=== PATIENT | female | born 1950 | race Caucasian/White ===

== ENCOUNTER 2016-03-05 19:02 | Inpatient (IN) | payer OTHER, MEDICARE ==
[~2016-03-05] VITALS: Ht 160 cm; Wt 83.3 kg
[~2016-03-05 19:02] MED LIST: ATEN-100 PO; ESTR0.5T PO; FLUO20 PO; TRAM50 PO
[2016-03-05 19:04] VITALS: BP 155/90; PULSE 113; RESP 16; TEMP 98.8; O2SAT 94
[2016-03-05] MEDS ORDERED: FLUO-1 PO (19:07)
[2016-03-05] MEDS ORDERED: LISI-515 PO (19:07)
[2016-03-05] MEDS ORDERED: KETOROLAC TROMETHAMINE 30 MG/ML (IVP) VIAL IV PUSH ONE (19:30)
[2016-03-05] MEDS ORDERED: DIAZEPAM 5 MG TAB PO ONE (19:30)
--- NOTE | 2016-03-05 20:11 | RADRPT ---
EXAM DATE/TIME: 03/05/2016 19:45 [facility] COMPARISON: No previous studies available for comparison. INDICATIONS : Fall, right hip pain. MEDICAL HISTORY : None. SURGICAL HISTORY : None. ENCOUNTER: Initial ACUITY: 1 day PAIN SCORE: 10/10 LOCATION: Right hip FINDINGS: AP and crosstable lateral views of the right hip were obtained and demonstrate a mildly comminuted in tertrochanteric fracture. There is a reduction in the normal hip angulation to approximately 90. The femoral head and acetabulum are intact. Pubic rami are intact as well. There is overlying soft tissu e swelling. CONCLUSION: Right intertrochanteric fracture. Jarrod Garza MD on March 05, 2016 at 20:08 Board Certified Radiologist. This report was verified electronically.
--- NOTE | 2016-03-05 20:13 | RADRPT ---
EXAM DATE/TIME: 03/05/2016 19:50 [facility] COMPARISON: No previous studies available for comparison. INDICATIONS : Right knee pain post fall. MEDICAL HISTORY : None. SURGICAL HISTORY : None. ENCOUNTER: Initial ACUITY: 1 day PAIN SCORE: 10/10 LOCATION: Bilateral chest FINDINGS: A limited two-view examination of the right knee was obtained in nonstandard for acute trauma series. This demonstrates mild osteopenia with no acute fracture or malalignment. The patella is intact. The re is a small 5 x 4 mm density in the anterior soft tissues adjacent to the proximal tibia. CONCLUSION: 1. No acute fracture or malalignment on this limited 2 view study. 2. Small soft tissue density of unclear significance. This could represent calcification or possible foreign body. Jarrod Garza MD on March 05, 2016 at 20:10 Board Certified Radiologist. This report was verified electronically.
--- NOTE | 2016-03-05 20:45 | RADRPT ---
EXAM DATE/TIME: 03/05/2016 19:45 [facility] COMPARISON: No previous studies available for comparison. INDICATIONS : Pre-op evaluation. MEDICAL HISTORY : None. SURGICAL HISTORY : None. ENCOUNTER: Initial ACUITY: 1 day PAIN SCORE: 10/10 LOCATION: Bilateral chest FINDINGS: A single AP supine view of the chest was obtained. The patient is mildly rotated. There is mild hazy opacity projected over the right lung which likely is artifactual. There are no confluent infiltrates or effusions. The heart size is at the upper limits of normal. Bony thorax is intact in appearance CONCLUSION: Rotated study hazy opacity projected over the right lung which likely is artifactual. Jarrod Garza MD on March 05, 2016 at 20:43 Board Certified Radiologist. This report was verified electronically.
[2016-03-05 21:06] LABS: AUTOMATED NEUTROPHIL # 10.2 TH/MM3 (1.8-7.7); BASOPHIL # 0.1 TH/MM3 (0-0.2); BASOPHIL % 0.5 % (0.0-2.0); EOSINOPHIL # 0.1 TH/MM3 (0-0.4); EOSINOPHIL % 0.5 % (0.0-4.0); HEMATOCRIT 44.7 % (35.0-46.0); HEMO FLAGS DIFF FINAL; LYMPH % 9.1 % (9.0-44.0); LYMPHOCYTE # 1.1 TH/MM3 (1.0-4.8); MEAN CELL VOLUME 88.2 FL (80.0-100.0); MEAN CORPUSCULAR HGB CONC 35.2 % (32.0-36.0); MONO % 3.2 % (0.0-8.0); NEUT % 86.7 % (16.0-70.0); PLATELET COUNT 250 TH/MM3 (150-450); RED BLOOD COUNT 5.07 MIL/MM3 (4.00-5.30); RED CELL DISTRIBUTION WIDTH 12.6 % (11.6-17.2); WHITE BLOOD COUNT 11.8 TH/MM3 (4.0-11.0)
[2016-03-05 21:09] LABS: APTT (PATIENT) 28.4 SEC (24.3-30.1); INTERNATIONAL NORMALIZED RATIO 0.9 RATIO; PROTHROMBIN TIME - PATIENT 10.2 SEC (9.8-11.6)
--- NOTE | 2016-03-05 21:19 | PD ---
HPI Chief Complaint: Fall Time Seen by Provider: 19:14 Travel History International Travel<30 days: No Contact w/Intl Traveler<30days: No Traveled to known affect area: No History of Present Illness HPI 65yo F with PMH of depression, [place] syndrome and HTN present to the ED with c/ o right hip pain s/p slip and fall outside her home today. Denies any head trauma, dizziness, chest pain, sob, n/v, abdominal pain, weakness or numbness. Pt was unable to get up from fall. PFSH Past Medical History Depression: Yes Hypertension: Yes Past Surgical History Other Surgery: Yes (RIGHT HAND PLASTIC SX) Social History Alcohol Use: No Tobacco Use: Yes (5 CIGARETTES DAILY) Substance Use: No Allergies-Medications (Allergen,Severity, Reaction): Coded Allergies: No Known Allergies (Unverified , 04/07/12) Reported Meds & Prescriptions Reported Meds & Active Scripts Active Reported Prozac (Fluoxetine HCl) 10 Mg Cap 50 Mg PO DAILY Lisinopril 20 Mg Tab Unknown Dose PO DAILY Review of Systems Except as stated in HPI: all other systems reviewed are Neg Physical Exam Narrative GENERAL: 65yo F in moderate distress. SKIN: Warm and dry. HEAD: Atraumatic. Normocephalic. EYES: Pupils equal and round. No scleral icterus. No injection or drainage. ENT: No nasal bleeding or discharge. Mucous membranes pink and moist. NECK: Trachea midline. No JVD. CARDIOVASCULAR: Regular rate and rhythm. No murmur appreciated. RESPIRATORY: No accessory muscle use. Clear to auscultation. Breath sounds equal bilaterally. GASTROINTESTINAL: Abdomen soft, non-tender, nondistended. Hepatic and splenic margins not palpable. 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 RLE: + TTP right proximal femur. No open wound. DP 2+. Sensation intact. NEUROLOGICAL: Awake and alert. No obvious cranial nerve deficits. Motor grossly within normal limits. Normal speech. PSYCHIATRIC: Appropriate mood and affect; insight and judgment normal. Data Data Last Documented VS Vital Signs Date Time Temp Pulse Resp B/P Pulse Ox O2 Delivery O2 Flow Rate FiO2 03/05/16 21:29 55 18 150/69 96 Nasal Cannula 2 03/05/16 19:04 98.8 Orders Diazepam (Valium) (03/05/16 19:30) Ketorolac Inj (Toradol Inj) (03/05/16 19:30) Hip, Uni(Ap&Lat) W Ap Pelvis (03/05/16 ) Knee, Ltd (1 Or 2vws) (03/05/16 ) Complete Blood Count With Diff (03/05/16 20:27) Basic Metabolic Panel (Bmp) (03/05/16 20:27) Prothrombin Time / Inr (Pt) (03/05/16 20:27) Act Partial Throm Time (Ptt) (03/05/16 20:27) Type And Screen (03/05/16 20:27) Chest, Single Ap (03/05/16 ) Admit Order (Ed Use Only) (03/05/16 22:17) Consult Orthopedic (03/05/16 ) Labs Laboratory Tests Test 03/05/16 20:45 White Blood Count 11.8 TH/MM3 Red Blood Count 5.07 MIL/MM3 Hemoglobin 15.7 GM/DL Hematocrit 44.7 % Mean Corpuscular Volume 88.2 FL Mean Corpuscular Hemoglobin 31.0 PG Mean Corpuscular Hemoglobin 35.2 % Concent Red Cell Distribution Width 12.6 % Platelet Count 250 TH/MM3 Mean Platelet Volume 8.8 FL Neutrophils (%) (Auto) 86.7 % Lymphocytes (%) (Auto) 9.1 % Monocytes (%) (Auto) 3.2 % Eosinophils (%) (Auto) 0.5 % Basophils (%) (Auto) 0.5 % Neutrophils # (Auto) 10.2 TH/MM3 Lymphocytes # (Auto) 1.1 TH/MM3 Monocytes # (Auto) 0.4 TH/MM3 Eosinophils # (Auto) 0.1 TH/MM3 Basophils # (Auto) 0.1 TH/MM3 CBC Comment DIFF FINAL Differential Comment Prothrombin Time 10.2 SEC Prothromb Time International 0.9 RATIO Ratio Activated Partial 28.4 SEC Thromboplast Time Sodium Level 138 MEQ/L Potassium Level 3.4 MEQ/L Chloride Level 99 MEQ/L Carbon Dioxide Level 31.7 MEQ/L Anion Gap 7 MEQ/L Blood Urea Nitrogen 20 MG/DL Creatinine 0.81 MG/DL Estimat Glomerular Filtration 71 ML/MIN Rate Random Glucose 100 MG/DL Calcium Level 8.6 MG/DL Blood Type O POSITIVE Antibody Screen NEGATIVE Blood Bank Comment MDM Medical Decision Making Medical Screen Exam Complete: Yes Emergency Medical Condition: Yes Differential Diagnosis Fracture vs. contusion Narrative Course 65yo F with right leg pain s/p mechanical fall. Xray right hip showed right intertrochanteric fracture. Pt given toradol and valium for pain. Labs, reviewed, mild leukocytosis. H/H stable. Pt has no other injuries. Xray of right knee negative for fracture. Orthopedic consulted, discussed with Dr. Veronica, orthopedic consult placed and recommended admit to medicine. Diagnosis Primary Impression: Fracture, intertrochanteric, right femur Qualified Code: S72.141A - Fracture, intertrochanteric, right femur, closed, initial encounter Admitting Information Admitting Physician Requests: Admit Scripts Rivaroxaban (Xarelto)10 Mg Tab10 Mg PO DAILY #14 TAB Ref 0 Prov:Roberto Wong 03/06/16 Hydrocodone-Acetaminophen ([place])7.5-325 mg Tab1 Tab PO Q4H PRN (PAIN) #60 TAB Ref 0 Prov:Roberto Wong 03/06/16 Britt Leo DO Mar 05, 2016 21:19
[2016-03-05 21:23] LABS: BICARBONATE 31.7 MEQ/L (21.0-32.0); POTASSIUM 3.4 MEQ/L (3.5-5.1)
[2016-03-05 21:29] VITALS: BP 150/69; PULSE 55; RESP 18; O2SAT 96
[2016-03-05] MEDS ORDERED: NALOXONE HCL 0.4 MG/ML AMP IV PRN (22:30)
[2016-03-05] MEDS ORDERED: SODIUM CHLORIDE 0.9% FLUSH 5 ML FLUSH FLUSH PRN (22:30)
[2016-03-05 23:47] VITALS: BP 102/55; PULSE 57; RESP 18; O2SAT 94
[2016-03-06] MEDS: MORPHINE SULFATE 4 MG/ML INJ IV PUSH PRN ×2 (01:00→04:46)
[2016-03-06 02:42] VITALS: BP 91/55; PULSE 65; RESP 18; TEMP 98.4; O2SAT 97
[2016-03-06 04:46] VITALS: BP 126/61; PULSE 63; RESP 18; TEMP 98.4; O2SAT 100
[2016-03-06 05:06] LABS: AUTOMATED NEUTROPHIL # 5.8 TH/MM3 (1.8-7.7); BASOPHIL % 0.5 % (0.0-2.0); EOSINOPHIL # 0.1 TH/MM3 (0-0.4); EOSINOPHIL % 0.8 % (0.0-4.0); HEMATOCRIT 40.3 % (35.0-46.0); HEMO FLAGS DIFF FINAL; LYMPH % 25.9 % (9.0-44.0); LYMPHOCYTE # 2.3 TH/MM3 (1.0-4.8); MEAN CELL VOLUME 88.8 FL (80.0-100.0); MEAN CORPUSCULAR HEMOGLOBIN 30.8 PG (27.0-34.0); MEAN CORPUSCULAR HGB CONC 34.7 % (32.0-36.0); MONO % 7.3 % (0.0-8.0); NEUT % 65.5 % (16.0-70.0); PLATELET COUNT 218 TH/MM3 (150-450); RED BLOOD COUNT 4.53 MIL/MM3 (4.00-5.30); RED CELL DISTRIBUTION WIDTH 12.8 % (11.6-17.2); WHITE BLOOD COUNT 8.9 TH/MM3 (4.0-11.0)
[2016-03-06 05:19] LABS: BICARBONATE 33.3 MEQ/L (21.0-32.0); POTASSIUM 3.5 MEQ/L (3.5-5.1)
[2016-03-06 06:35] VITALS: BP 101/58; PULSE 55; RESP 18; TEMP 98.7; O2SAT 96
--- NOTE | 2016-03-06 06:52 | PD.ORT.PN ---
Subjective Subjective Remarks s/p fall at home right hip pain. no other complaints. Objective Vitals Vital Signs Date Time Temp Pulse Resp B/P Pulse Ox O2 Delivery O2 Flow Rate FiO2 03/06/16 06:37 18 03/06/16 06:35 98.7 55 18 101/58 96 Nasal Cannula 2 03/06/16 04:46 98.4 63 18 126/61 100 Room Air 03/06/16 02:42 98.4 65 18 91/55 97 Room Air 03/06/16 00:59 18 03/05/16 23:47 57 18 102/55 94 Nasal Cannula 2 03/05/16 21:29 55 18 150/69 96 Nasal Cannula 2 03/05/16 19:04 98.8 113 16 155/90 94 Result Diagram: 03/06/16 0437 03/06/16 0447 Other Results Laboratory Tests Test 03/05/16 20:45 Prothrombin Time 10.2 SEC (9.8-11.6) Prothromb Time International 0.9 RATIO Ratio Objective Remarks RLE: Foot externally rotated. NVI. pain with motion of hip LLE: no pain with motion. NVI BUE: no pain with motion. NVI Assessment & Plan Assessment and Plan 1) Right Intertroch Hip Fx -consents -surgery this AM Roberto Wong Mar 06, 2016 06:52
[2016-03-06] MEDS ORDERED: XARE10TA PO (06:54)
[2016-03-06] MEDS ORDERED: WALKER/ADULT/FO1 MIS (06:54)
[2016-03-06] MEDS ORDERED: HYDR-3288 PO (06:54)
[2016-03-06] MEDS ORDERED: ceFAZolin INJ 1,000 MG VIAL ONE (07:50)
[2016-03-06] MEDS ORDERED: VANCOMYCIN HCL 1000 MG VIAL ONE (07:50)
[2016-03-06] MEDS ORDERED: BUPIVACAINE/EPINEPHRINE 0.25% PF 10 ML VIAL ONE (07:50)
[2016-03-06] MEDS ORDERED: GENTAMICIN SULFATE 80 MG/2 ML VIAL ONE (07:51)
[2016-03-06] MEDS ORDERED: SODIUM CHLOR 0.9% 250 ML INJ 250 ML ONE (07:51)
--- NOTE | 2016-03-06 08:29 | MB ---
cc: TRISTIAN LEDESMA DATE OF CONSULTATION: 03/06/2016 REASON FOR CONSULTATION Right hip intertrochanteric fracture. HISTORY OF PRESENT ILLNESS Hanna is a 65-year-old female who lives at home with her . She was outside in her yard. She lost her balance and fell. She denies any dizziness, syncope or loss of consciousness. She describes a mechanical fall. She landed on her right hip. She had immediate right hip pain. She was unable to stand or ambulate. Pain is worse with movement and is improved with rest. She presented to the emergency room where x-rays revealed a right hip intertrochanteric fracture. She is currently awake and alert in the emergency department. Her only complaint is her right hip. PAST MEDICAL HISTORY ILLNESSES 1. Depression. 2. Hypertension. SURGERIES Right hand surgery by a plastic surgeon. ALLERGIES None. MEDICATIONS 1. Prozac. 2. Lisinopril. SOCIAL HISTORY The patient denies alcohol or drug use. She smokes a few cigarettes a day. REVIEW OF SYSTEMS Patient denies headache, visual changes, neck pain, chest pain, shortness of breath, abdominal pain, nausea, vomiting or recent weight loss. She complains of right hip pain. Pain is worse with movement. FAMILY HISTORY Noncontributory. PHYSICAL EXAMINATION GENERAL: The patient is a well-developed, well-nourished 65-year-old female who is awake and alert. She is alert and oriented x3. She is in a hospital bed. VITAL SIGNS: Temperature 98.7, pulse 55, respirations 18, blood pressure 101/58. O2 sat is 96% on two liters nasal cannula. HEAD: The patient is normocephalic. Pupils are equal. NECK: Soft, nontender. Trachea is midline. ABDOMEN: Soft, nontender, nondistended. EXTREMITIES: Examination of the right and left upper extremity reveals no obvious pain or deformity with shoulder, elbow or wrist motion. She has good capillary refill in her fingers. Skin is intact in both hands. Radial pulses are palpable bilaterally. Examination of left leg reveals no significant pain with hip, knee or ankle motion. Skin is intact. Dorsalis pedis pulse is palpable. Sensation is intact. Examination of right leg reveals pain with any hip motion. She has no tenderness around the knee, tibia or ankle. Skin is intact. Dorsalis pedis pulse is palpable. X-RAYS X-rays of the right hip were reviewed. The patient has a displaced right hip intertrochanteric fracture. IMPRESSION 1. Hypertension. 2. Possible osteoporosis. 3. Right hip intertrochanteric fracture. PLAN The treatment options were discussed with the patient. At this point I would recommend right hip reduction and intramedullary nail fixation. The risks of surgery include bleeding, infection, injuries to arteries, nerves and blood vessels, nonunion, malunion, painful hardware, as well as medical complications including blood clot, stroke, heart attack and . All questions were answered. I will plan on surgery today. A mid-level provider in my office, nurse practitioner or PA, may see this patient on a follow-up basis and continue to implement the objective of this plan including: Starting or adjusting medications, injections of muscle, tendon, bursa or joints, cast application, orthotic or brace application, physical therapy, further radiographic studies including x-ray, MRI, CT, ultrasounds or bone scan, vascular studies, neurologic studies, or other specialist consultations, and proceeding with surgical management as appropriate. MD TRINO Naidu/GERI /8:01 AM /8:17 AM
[2016-03-06] MEDS ORDERED: ceFAZolin INJ 1,000 MG VIAL IV ONE (08:31)
[2016-03-06] MEDS ORDERED: VANCOMYCIN HCL 1000 MG VIAL OTHER ONE (08:31)
[2016-03-06] MEDS ORDERED: GENTAMICIN SULFATE 80 MG/2 ML VIAL XX ONE (08:36)
[2016-03-06] MEDS ORDERED: BUPIVACAINE/EPINEPHRINE 0.25% PF 30 ML VIAL INFIL ONE (08:36)
[2016-03-06] MEDS ORDERED: SODIUM CHLORIDE 0.9% FLUSH 5 ML FLUSH FLUSH SCH (09:00)
[2016-03-06] MEDS ORDERED: MORPHINE SULFATE 4 MG/ML INJ IV PUSH PRN (09:15)
[2016-03-06] MEDS ORDERED: ERGOCALCIFEROL (VIT D2) 50,000 UNIT CAP PO ONE (09:15)
[2016-03-06] MEDS ORDERED: ACETAMINOPHEN/HYDROcodone 325 MG/7.5 MG TAB PO PRN (09:15)
[2016-03-06] MEDS ORDERED: diphenhydrAMINE HCL 25 MG CAP PO PRN (09:15)
[2016-03-06] MEDS ORDERED: ONDANSETRON HCL 4 MG/2 ML VIAL IVP PRN (09:15)
[2016-03-06] MEDS ORDERED: SODIUM CHLORIDE 0.9% FLUSH 5 ML FLUSH IVF PRN (09:15)
--- NOTE | 2016-03-06 09:15 | PD.OP ---
cc: Donny Bonilla MD Operative Report Date of Surgery: Mar 06, 2016 Preoperative Diagnosis: Right hip intertrochanteric fracture Postoperative Diagnosis: Procedure: Right hip reduction and intramedullary nail fixation Anesthesia: Gen. Surgeon: Donny Bonilla Hand Cloth Cutter(s): YG Bates PA-C The surgical procedure was assisted by my physician title i assistant. My P.A. presence was necessary throughout this case for the manipulation and positioning of the surgical extremity. My P.A. was assisting me throughout the duration of this procedure. The skill set of a physician title i assistant was medically necessary to complete this procedure. During the surgical case the surgical training specialist was working at the back table and the physician title i assistant was directly assisting me. Operation and Findings: Implants used: [10]mm x [360]mm 125 Synthes TFNA troch nail Plan of activity: 50% weightbearing Patient was seen and evaluated preoperatively. The patient has significant hip pain from proximal femur fracture. The risk and benefits of surgery were discussed in depth with the patient to include bleeding, infection, nonunion, malunion, need for hip replacement, painful hardware, as well as medical competitions including blood clots, stroke, heart attack, and . Informed consent was obtained. Operative site was marked. Patient was brought to the operating room and placed on fracture table. IV sedation was administered by anesthesiologist. Timeout procedure was performed. Hip and leg were prepped with alcohol followed by DuraPrep and draped in the usual sterile fashion. IV antibiotics were given prior to incision. Procedure began with reduction of fracture. Traction was applied. The leg was manipulated to achieve reduction. Excellent reduction was achieved. Fluoroscopy was used to confirm reduction. A three inch incision was made proximal to the trochanter. Subcutaneous tissue was dissected bluntly. Guidepin was placed at the tip of the trochanter and advanced into the femoral canal. Fluoroscopy confirmed appropriate guidepin placement. A opening reamer was placed over the guidepin. A long ball tipped guide pin was now placed down the femoral canal into the center of the distal femur. The nail length was now measured. Fluoroscopy confirmed appropriate guidepin placement. Flexible reamers were now passed over the guidepin to ream the intramedullary canal. The Synthes TFNA nail was attached to the insertion handle. Nail was now placed over the guidepin into the femoral canal. Fluoroscopy confirmed appropriate nail placement. A second incision was made over the lateral thigh. Cannulas were placed through the insertion handle down to the femur. Guidepin was now placed through the femoral nail into the center of the femoral head. Fluoroscopy confirmed appropriate guidepin placement. Screw length was measured. Cannulated drill was placed over the guidepin. Appropriate length lag screw was now placed. Traction was released and compression was applied. The set screw was now tightened in dynamic mode. Next, using perfect [place] technique two distal interlocking screws were placed. Screw holes were predrilled and screw lengths were measured. Final fluoroscopy revealed well aligned fracture with well-placed hardware. Incision was closed with 3-0 Vicryl and kassandra. Sterile dressings were applied. Patient was awakened and transferred to recovery room. Donny Bonilla MD Mar 06, 2016 09:15
[2016-03-06] MEDS ORDERED: DO NOT ADM ANY ANTICOAGULANT DRUGS XX PRN (09:30)
[2016-03-06] MEDS ORDERED: MIDAZOLAM HCL 2 MG/2 ML VIAL ONE (09:50)
[2016-03-06] MEDS ORDERED: *morphine SULFATE 8 MG/ML PERIprocedure ONLY ONE ×3 (10:06→10:23)
--- NOTE | 2016-03-06 10:43 | HHI.HP ---
[facility] Primary Care Physician Glen Beltran MD Admission Diagnosis Right intertrochanteric fracture Diagnoses: Chief Complaint: fall Travel History International Travel<30 Days: No Contact w/Intl Traveler <30 Da: No Traveled to Known Affected Are: No History of Present Illness 65-year-old female with past medical history of hypertension, depression who came to the emergency room for evaluation after mechanical fall at home. X-ray reveals intertrochanteric fracture, orthopedic doctor was consulted and Dr. Bonilla, just the patient to the OR for surgery. The patient was seen after the surgery. Her blood pressure was noted low immediately in tobacco systolic blood pressure is 70. She received 1 L normal saline plan to continue her second liter. Blood pressure is improving. Patient is complaining at this time is feeling a little bit dizzy. Denies chest pain, shortness of breath, nausea, vomiting, diarrhea or constipation. Review of Systems Constitutional: COMPLAINS OF: Dizziness (after surgery ), DENIES: Fever, Chills, Change in appetite Endocrine: DENIES: Heat/cold intolerance Eyes: DENIES: Blurred vision, Eye pain Ears, nose, mouth, throat: DENIES: Tinnitus, Hearing loss, Vertigo, Nasal discharge, Oral lesions, Throat pain, Hoarseness, Ear Pain, Running Nose, Epistaxis, Sinus Pain, Toothache, Odynophagia Respiratory: DENIES: Apneas, Cough, Snoring, Wheezing, Hemoptysis, Sputum production, Shortness of breath Cardiovascular: DENIES: Chest pain, Palpitations, Syncope, Dyspnea on Exertion , PND, Lower Extremity Edema, Orthopnea, Claudication Gastrointestinal: DENIES: Constipation, Diarrhea, Nausea, Vomiting Genitourinary: DENIES: Urinary frequency, Urinary incontinence, Urgency Musculoskeletal: COMPLAINS OF: Joint pain Neurologic: DENIES: Abnormal gait, Headache, Localized weakness, Paresthesias, Seizures, Speech Problems, Tremor, Poor Balance Psychiatric: COMPLAINS OF: Anxiety, Depression Past Family Social History Past Medical History Hypertension, depression Past Surgical History Denies having any surgical history in the past Reported Medications Reported Meds & Active Scripts Active Xarelto (Rivaroxaban) 10 Mg Tab 10 Mg PO DAILY [place] (Hydrocodone-Acetaminophen) 7.5-325 mg Tab 1 Tab PO Q4H PRN Reported Prozac (Fluoxetine HCl) 10 Mg Cap 50 Mg PO DAILY Lisinopril 20 Mg Tab Unknown Dose PO DAILY Allergies: Coded Allergies: No Known Allergies (Unverified , 04/07/12) Family History Father had heart problems, cad with cabg Social History Denies alcohol use, tobacco use or illicit drug use. Physical Exam Vital Signs Vital Signs Date Time Temp Pulse Resp B/P Pulse Ox O2 Delivery O2 Flow Rate FiO2 03/06/16 10:00 80 14 110/57 97 Nasal Cannula 2 03/06/16 09:45 94 14 91/55 98 Nasal Cannula 2 03/06/16 09:42 97.7 93 14 110/58 95 Nasal Cannula 2 03/06/16 06:37 18 03/06/16 06:35 98.7 55 18 101/58 96 Nasal Cannula 2 03/06/16 04:46 98.4 63 18 126/61 100 Room Air 03/06/16 02:42 98.4 65 18 91/55 97 Room Air 03/06/16 00:59 18 03/05/16 23:47 57 18 102/55 94 Nasal Cannula 2 03/05/16 21:29 55 18 150/69 96 Nasal Cannula 2 03/05/16 19:04 98.8 113 16 155/90 94 Physical Exam GENERAL: This is a 65-year-old female, well-nourished, well-developed patient, in no apparent distress. SKIN: No rashes, ecchymoses or lesions. Cool and dry. HEAD: Atraumatic. Normocephalic. No temporal or scalp tenderness. EYES: Pupils equal round and reactive. Extraocular motions intact. No scleral icterus. No injection or drainage. ENT: Nose without bleeding, purulent drainage or septal hematoma. Throat without erythema, tonsillar hypertrophy or exudate. Uvula midline. Airway patent. NECK: Trachea midline. No JVD or lymphadenopathy. Supple, nontender, no meningeal signs. CARDIOVASCULAR: Regular rate and rhythm without murmurs, gallops, or rubs. RESPIRATORY: Clear to auscultation. Breath sounds equal bilaterally. No wheezes , rales, or rhonchi. GASTROINTESTINAL: Abdomen soft, non-tender, nondistended. No hepato-splenomegaly , or palpable masses. No guarding. MUSCULOSKELETAL: Extremities without clubbing, cyanosis, or edema. No joint tenderness, effusion, or edema noted. No calf tenderness. Negative Homans sign bilaterally. NEUROLOGICAL: Awake and alert. Cranial nerves II through XII intact. Motor and sensory grossly within normal limits. Five out of 5 muscle strength in all muscle groups. Normal speech. Laboratory Laboratory Tests Test 03/05/16 03/06/16 03/06/16 20:45 04:37 04:47 White Blood Count 11.8 8.9 Red Blood Count 5.07 4.53 Hemoglobin 15.7 14.0 Hematocrit 44.7 40.3 Mean Corpuscular Volume 88.2 88.8 Mean Corpuscular Hemoglobin 31.0 30.8 Mean Corpuscular Hemoglobin 35.2 34.7 Concent Red Cell Distribution Width 12.6 12.8 Platelet Count 250 218 Mean Platelet Volume 8.8 8.6 Neutrophils (%) (Auto) 86.7 65.5 Lymphocytes (%) (Auto) 9.1 25.9 Monocytes (%) (Auto) 3.2 7.3 Eosinophils (%) (Auto) 0.5 0.8 Basophils (%) (Auto) 0.5 0.5 Neutrophils # (Auto) 10.2 5.8 Lymphocytes # (Auto) 1.1 2.3 Monocytes # (Auto) 0.4 0.6 Eosinophils # (Auto) 0.1 0.1 Basophils # (Auto) 0.1 0.0 CBC Comment DIFF FINAL DIFF FINAL Differential Comment Prothrombin Time 10.2 Prothromb Time International 0.9 Ratio Activated Partial 28.4 Thromboplast Time Sodium Level 138 139 Potassium Level 3.4 3.5 Chloride Level 99 100 Carbon Dioxide Level 31.7 33.3 Anion Gap 7 6 Blood Urea Nitrogen 20 21 Creatinine 0.81 0.86 Estimat Glomerular Filtration 71 66 Rate Random Glucose 100 98 Calcium Level 8.6 8.4 Blood Type O POSITIVE Antibody Screen NEGATIVE Blood Bank Comment 25-Hydroxy Vitamin D Total 7.3 Result Diagram: 03/06/16 0437 03/06/16 0447 Imaging Last Impressions Knee X-Ray 03/05/16 0000 Signed Impressions: Service Date/Time: Saturday, March 05, 2016 19:50 - CONCLUSION: 1. No acute fracture or malalignment on this limited 2 view study. 2. Small soft tissue density of unclear significance. This could represent calcification or possible foreign body. Jarrod Garza MD Hip and Pelvis X-Ray 03/05/16 0000 Signed Impressions: Service Date/Time: Saturday, March 05, 2016 19:45 - CONCLUSION: Right intertrochanteric fracture. Jarrod Garza MD Chest X-Ray 03/05/16 0000 Signed Impressions: Service Date/Time: Saturday, March 05, 2016 19:45 - CONCLUSION: Rotated study hazy opacity projected over the right lung which likely is artifactual. Jarrod Garza MD Assessment and Plan Assessment and Plan 65-year-old female with past medical history hypertension, depression came to the emergency room for further evaluation after mechanical fall at home. Mechanical fall at home Rights in intertrochanteric fracture. Status post relief by Dr. Bonilla . Pain per pain scale. Continue management per orthopedic doctor Hypertension. Noted hypotensive immediately after surgery. Received 2 L normal saline. Continue with bolus of normal saline until blood pressure is better controlled. Discussed with the nursing in pacu. Hold blood pressure medications at this time. Monitor vital signs closely. Depression. Stable at this time. Continue home medications. DVT prophylaxis SCD/teds, chemical prophylaxis per surgeon. Code Status Full code Discussed Condition With Patient, nurse Physician Certification 2 Midnight Certification Type: Admission for Inpatient Services Order for Inpatient Services The services are ordered in accordance with Medicare regulations or non- Medicare payer requirements, as applicable. In the case of services not specified as inpatient-only, they are appropriately provided as inpatient services in accordance with the 2-midnight benchmark. Estimated LOS (days): 3 days is the estimated time the patient will need to remain in the hospital, assuming treatment plan goals are met and no additional complications. Post-Hospital Plan: Home Marlin Martin MD Mar 06, 2016 10:43
[2016-03-06] MEDS ORDERED: *RESP: ALBUTEROL 2.5 MG/3 ML NEB (PRN) PERIprocedural Use ONLY NEB ONE (10:57)
[2016-03-06] MEDS ORDERED: LACTATED RINGER'S 1000 ML INJ 1,000 ML IV ONE ×3 (11:45→15:59)
[2016-03-06] MEDS ORDERED: ePHEDrine/NS 50 MG/5 ML SYR IV ONE (12:20)
[2016-03-06] MEDS ORDERED: ePHEDrine/NS 50 MG/5 ML SYR ONE (12:20)
[2016-03-06 12:45] LABS: REVIEW FLAG FINAL
--- NOTE | 2016-03-06 13:55 | EKG ---
Date Performed: 03/06/2016 Time Performed: 08:08:37 PTAGE: 65 years EKG: Sinus rhythm NORMAL ECG NO PREVIOUS TRACING DOCTOR: Danny Toledo Interpretating Date/Time 03/06/2016 13:53:51
[2016-03-06] MEDS ORDERED: ONDANSETRON HCL 4 MG/2 ML VIAL IV PUSH ONE (15:03)
[2016-03-06] MEDS ORDERED: PROPOFOL 200 MG/20 ML AMP IV ONE (15:03)
[2016-03-06] MEDS ORDERED: PHENYLEPH/NS 1000 MCG/10 ML SYR IV ONE (15:03)
[2016-03-06] MEDS: LACTATED RINGER'S 1000 ML INJ 1,000 ML IV SCH (15:10)
--- NOTE | 2016-03-06 15:30 | RADRPT ---
EXAM DATE/TIME: 03/06/2016 09:09 [place] COMPARISON: HIP RIGHT (AP&LAT 2/3VWS) W AP PELVIS, March 05, 2016, 19:45. INDICATIONS : ORIF right femur IM nail. MEDICAL HISTORY : None. SURGICAL HISTORY : None. ENCOUNTER: Subsequent ACUITY: 2 days PAIN SCORE: Non-responsive. LOCATION: Right femur. FINDINGS: 6 spot fluoroscopic images obtained in the operating room during a procedure demonstrate an antegrade intramedullary monique with 2 distal interlocking screws and a proximal femoral head/neck screw. There i s improved anatomic alignment associated with the intertrochanteric femur fracture. CONCLUSION: Improved anatomic alignment following right femur ORIF. Joaquín Willard MD on March 06, 2016 at 15:27 Board Certified Radiologist. This report was verified electronically.
[2016-03-06] MEDS ORDERED: ACETAMINOPHEN 1000 MG/100 ML VIAL IV ONE ×2 (15:57→16:15)
[2016-03-06] MEDS: ERGOCALCIFEROL (VIT D2) 50,000 UNIT CAP PO SCH (20:00)
[2016-03-06] MEDS: SODIUM CHLORIDE 0.9% FLUSH 5 ML FLUSH IVF SCH (21:00)
[2016-03-07] VITALS (7 sets, daily range): BP systolic 89–135; BP diastolic 60–70; PULSE 87–97; RESP 16–18; TEMP 97.8–99.6; O2SAT 95–100
[2016-03-07] MEDS: LACTATED RINGER'S 1000 ML INJ 1,000 ML IV SCH (05:31)
[2016-03-07 06:30] LABS: HEMATOCRIT 28.9 % (35.0-46.0); REVIEW FLAG FINAL
[2016-03-07] MEDS: ACETAMINOPHEN/HYDROcodone 325 MG/7.5 MG TAB PO PRN ×3 (07:11→15:41)
--- NOTE | 2016-03-07 07:46 | HHI.PR ---
Subjective Remarks Feels much better. Pain is fairly controlled by meds. No n/v/d/c. No fevers. BP is better controlled. Objective Vitals Vital Signs Date Time Temp Pulse Resp B/P Pulse Ox O2 Delivery O2 Flow Rate FiO2 03/07/16 07:05 100.1 99 14 122/68 98 Nasal Cannula 2 03/07/16 06:00 96 18 138/71 98 Nasal Cannula 2 03/07/16 05:07 98.8 93 16 107/53 97 Nasal Cannula 2 03/07/16 04:00 90 16 105/54 96 Nasal Cannula 2 03/07/16 03:00 99.8 94 16 107/51 95 Nasal Cannula 2 03/07/16 02:10 85 16 96/45 97 Nasal Cannula 2 03/07/16 01:12 100.2 87 18 108/52 96 Nasal Cannula 2 03/07/16 00:06 80 16 100/51 96 Nasal Cannula 2 03/06/16 23:00 80 14 90/45 96 Nasal Cannula 2 03/06/16 22:00 75 14 100/50 96 Nasal Cannula 2 03/06/16 21:00 75 16 106/67 98 Nasal Cannula 2 03/06/16 20:00 71 14 81/47 96 Nasal Cannula 2 03/06/16 19:00 98.6 73 14 94/49 97 Nasal Cannula 2 03/06/16 18:30 72 14 99/56 97 Nasal Cannula 2 03/06/16 18:10 74 14 81/45 97 Nasal Cannula 2 03/06/16 18:00 69 14 83/50 99 Nasal Cannula 2 03/06/16 17:30 77 14 85/45 97 Nasal Cannula 2 03/06/16 17:00 68 14 92/51 97 Nasal Cannula 2 03/06/16 16:45 71 14 84/49 95 Nasal Cannula 2 03/06/16 16:30 71 14 106/58 97 Nasal Cannula 2 03/06/16 16:00 97.8 80 14 77/48 95 Nasal Cannula 2 03/06/16 15:30 84 14 93/52 96 Nasal Cannula 2 03/06/16 15:15 73 14 88/51 95 Nasal Cannula 2 03/06/16 15:00 77 14 92/54 96 Nasal Cannula 2 03/06/16 14:45 79 14 99/52 95 Nasal Cannula 2 03/06/16 14:30 75 14 89/50 95 Nasal Cannula 2 03/06/16 14:15 77 14 93/48 95 Nasal Cannula 2 03/06/16 14:00 75 14 87/45 96 Nasal Cannula 2 03/06/16 13:45 73 14 90/48 97 Nasal Cannula 2 03/06/16 13:30 81 14 83/45 98 Nasal Cannula 2 03/06/16 13:15 82 14 82/44 97 Nasal Cannula 2 03/06/16 13:00 75 14 77/44 97 Nasal Cannula 2 03/06/16 12:45 75 14 78/48 96 Nasal Cannula 2 03/06/16 12:30 80 14 95/53 96 Nasal Cannula 2 03/06/16 12:15 75 14 75/47 95 Nasal Cannula 2 03/06/16 12:00 70 14 78/48 95 Nasal Cannula 2 03/06/16 11:45 88 14 89/50 98 Nasal Cannula 2 03/06/16 11:30 96 14 89/49 97 Nasal Cannula 2 03/06/16 11:15 73 14 82/52 96 Nasal Cannula 2 03/06/16 11:00 73 14 89/49 97 Nasal Cannula 2 03/06/16 10:45 84 14 79/47 95 Nasal Cannula 2 03/06/16 10:30 90 14 95/52 94 Nasal Cannula 2 03/06/16 10:15 89 14 122/63 97 Nasal Cannula 2 03/06/16 10:00 80 14 110/57 97 Nasal Cannula 2 03/06/16 09:45 94 14 91/55 98 Nasal Cannula 2 03/06/16 09:42 97.7 93 14 110/58 95 Nasal Cannula 2 I/O 03/06/16 03/06/16 03/06/16 03/07/16 03/07/16 03/07/16 07:00 15:00 23:00 07:00 15:00 23:00 Intake Total 4300 ml 1750 ml 1049 ml Output Total 780 ml 415 ml 600 ml Balance 3520 ml 1335 ml 449 ml Intake Oral 150 ml IV Total 3800 ml 1600 ml 1049 ml Other 500 ml Output Urine Total 730 ml 415 ml 600 ml Estimated Blood Loss 50 ml Result Diagram: 03/07/16 0431 03/06/16 0447 Imaging Last Impressions Femur X-Ray 03/06/16 0000 Signed Impressions: Service Date/Time: Sunday, March 06, 2016 09:09 - CONCLUSION: Improved anatomic alignment following right femur ORIF. Joaquín Willard MD Knee X-Ray 03/05/16 0000 Signed Impressions: Service Date/Time: Saturday, March 05, 2016 19:50 - CONCLUSION: 1. No acute fracture or malalignment on this limited 2 view study. 2. Small soft tissue density of unclear significance. This could represent calcification or possible foreign body. Jarrod Garza MD Hip and Pelvis X-Ray 03/05/16 0000 Signed Impressions: Service Date/Time: Saturday, March 05, 2016 19:45 - CONCLUSION: Right intertrochanteric fracture. Jarrod Garza MD Chest X-Ray 03/05/16 0000 Signed Impressions: Service Date/Time: Saturday, March 05, 2016 19:45 - CONCLUSION: Rotated study hazy opacity projected over the right lung which likely is artifactual. Jarrod Garza MD Objective Remarks GENERAL: This is a 65-year-old female, well-nourished, well-developed patient, in no apparent distress. SKIN: No rashes, ecchymoses or lesions. Cool and dry. HEAD: Atraumatic. Normocephalic. No temporal or scalp tenderness. EYES: Pupils equal round and reactive. Extraocular motions intact. No scleral icterus. No injection or drainage. ENT: Nose without bleeding, purulent drainage or septal hematoma. Throat without erythema, tonsillar hypertrophy or exudate. Uvula midline. Airway patent. NECK: Trachea midline. No JVD or lymphadenopathy. Supple, nontender, no meningeal signs. CARDIOVASCULAR: Regular rate and rhythm without murmurs, gallops, or rubs. RESPIRATORY: Clear to auscultation. Breath sounds equal bilaterally. No wheezes , rales, or rhonchi. GASTROINTESTINAL: Abdomen soft, non-tender, nondistended. No hepato-splenomegaly , or palpable masses. No guarding. MUSCULOSKELETAL: Extremities without clubbing, cyanosis, or edema. No joint tenderness, effusion, or edema noted. No calf tenderness. Negative Homans sign bilaterally. NEUROLOGICAL: Awake and alert. Cranial nerves II through XII intact. Motor and sensory grossly within normal limits. Five out of 5 muscle strength in all muscle groups. Normal speech. A/P Assessment and Plan 65-year-old female with past medical history hypertension, depression came to the emergency room for further evaluation after mechanical fall at home. Mechanical fall at home Rights in intertrochanteric fracture. Status post relief by Dr. Bonilla . Pain per pain scale. Continue management per orthopedic doctor Hypertension. Noted hypotensive immediately after surgery. Received total of 5L normal saline postsurgical. Discussed with the nursing in pacu. Hold blood pressure medications at this time. Monitor vital signs closely. BP improving, and stable. Also noted postoperative temps of 100.1 , no leukocytosis no sign of infection. Depression. Stable at this time. Continue home medications. DVT prophylaxis SCD/teds, chemical prophylaxis per surgeon. Code Status Full code Discussed Condition With Patient, nurse BP better controlled , can transfer to med/surg ortho floor. Marlin Martin MD Mar 07, 2016 07:46
[2016-03-07] MEDS: ENOXAPARIN SODIUM 30 MG/0.3 ML SYRINGE SQ SCH (09:00)
[2016-03-07] MEDS: SODIUM CHLORIDE 0.9% FLUSH 5 ML FLUSH IVF SCH ×2 (09:00→21:00)
[2016-03-07] MEDS ORDERED: CHOLECALCIFEROL (VIT D3) 5000 UNIT CAP PO SCH (09:00)
[2016-03-07] MEDS: CALCIUM/VITAMIN D 250 MG/125 U TAB PO SCH ×2 (12:52→15:41)
[2016-03-07] MEDS ORDERED: ATEN50TA PO (15:35)
[2016-03-08] VITALS (8 sets, daily range): BP systolic 102–129; BP diastolic 55–67; PULSE 74–105; RESP 16–18; TEMP 96.9–100; O2SAT 93–97
[2016-03-08] MEDS: ACETAMINOPHEN/HYDROcodone 325 MG/7.5 MG TAB PO PRN ×3 (03:35→17:37)
--- NOTE | 2016-03-08 06:39 | PD.ORT.PN ---
Subjective Subjective Remarks POD 2 s/p IMN right hip doing well. pain improving. Objective Vitals Vital Signs Date Time Temp Pulse Resp B/P Pulse Ox O2 Delivery O2 Flow Rate FiO2 03/08/16 04:21 92 03/08/16 04:00 99.4 97 16 111/61 97 03/08/16 00:00 100.0 105 16 106/65 97 03/07/16 21:53 96 03/07/16 20:16 97/65 03/07/16 20:00 99.0 97 16 89/60 95 03/07/16 15:40 99.6 91 17 120/65 98 03/07/16 13:15 92 17 111/65 03/07/16 13:15 97.8 03/07/16 11:50 98.8 87 18 135/70 100 03/07/16 11:00 89 03/07/16 10:00 94 18 119/60 96 Nasal Cannula 2 03/07/16 09:00 86 18 116/60 96 Nasal Cannula 2 03/07/16 08:00 98.8 90 18 110/54 95 Nasal Cannula 2 03/07/16 07:05 100.1 99 14 122/68 98 Nasal Cannula 2 I/O 03/07/16 03/07/16 03/07/16 03/08/16 03/08/16 03/08/16 07:00 15:00 23:00 07:00 15:00 23:00 Intake Total 1049 ml 540 ml 240 ml 480 ml Output Total 600 ml 800 ml 450 ml Balance 449 ml -260 ml 240 ml 30 ml Intake Oral 540 ml 240 ml 480 ml IV Total 1049 ml Output Urine Total 600 ml 800 ml 450 ml # Voids 0 2 # Bowel Movements 0 Result Diagram: 03/07/16 0431 03/06/16 0447 Objective Remarks RLE: dressings clean and dry.intact. nvi. Assessment & Plan Assessment and Plan 1) Right Intertroch Hip Fx s/p IMN - POD 2 -50%WB -daily dressing changes -CM for rehab placement -plan for DC to rehab -f/u with Sandra or SANDRA in 2 weeks Roberto Wong Mar 08, 2016 06:39
[2016-03-08] MEDS ORDERED: DRIS50002 PO (07:48)
[2016-03-08] MEDS ORDERED: OYST250T4 PO (07:48)
--- NOTE | 2016-03-08 07:49 | HHI.DCPOC ---
Discharge Care Plan Goals to Promote Your Health * To prevent worsening of your condition and complications * To maintain your health at the optimal level Directions to Meet Your Goals Take your medications as prescribed Follow your dietary instruction Follow activity as directed Keep your appointments as scheduled Take your immunizations and boosters as scheduled If your symptoms worsen call your PCP, if no PCP go to Urgent Care Center or Emergency Room Smoking is Dangerous to Your Health. Avoid second hand smoke Call the 24-hour hour crisis hotline for domestic abuse at Marlin Martin MD Mar 08, 2016 07:48
--- NOTE | 2016-03-08 07:49 | HHI.DS ---
Discharge Summary Admission Date Mar 05, 2016 at 22:19 Discharge Date: Mar 09, 2016 Admitting Diagnosis Right intertrochanteric fracture (1) Hypotension ICD Code: I95.9 Diagnosis: Principal (2) Fracture, intertrochanteric, right femur ICD Code: S72.141A Diagnosis: Principal (3) Bremen syndrome ICD Code: Q79.8 Diagnosis: Secondary Procedures Right hip intertrochanteric fracture S/P Right hip reduction and intramedullary nail fixation by Dr Flores Brief History - From Admission 65-year-old female with past medical history of hypertension, depression who came to the emergency room for evaluation after mechanical fall at home. X-ray reveals intertrochanteric fracture, orthopedic doctor was consulted and Dr. Flores, just the patient to the OR for surgery. The patient was seen after the surgery. Her blood pressure was noted low immediately in tobacco systolic blood pressure is 70. She received 1 L normal saline plan to continue her second liter. Blood pressure is improving. Patient is complaining at this time is feeling a little bit dizzy. Denies chest pain, shortness of breath, nausea, vomiting, diarrhea or constipation. CBC/BMP: 03/07/16 0431 03/06/16 0447 Significant Findings Laboratory Tests Test 03/05/16 03/06/16 03/07/16 20:45 04:47 04:31 White Blood Count 11.8 TH/MM3 (4.0-11.0) Hemoglobin 15.7 GM/DL 10.0 GM/DL (11.6-15.3) (11.6-15.3) Neutrophils (%) (Auto) 86.7 % (16.0-70.0) Neutrophils # (Auto) 10.2 TH/MM3 (1.8-7.7) Potassium Level 3.4 MEQ/L (3.5-5.1) Blood Urea Nitrogen 20 MG/DL (7-18) 21 MG/DL (7-18) Estimat Glomerular Filtration 71 ML/MIN (>89) 66 ML/MIN (>89) Rate Carbon Dioxide Level 33.3 MEQ/L (21.0-32.0) Calcium Level 8.4 MG/DL (8.5-10.1) 25-Hydroxy Vitamin D Total 7.3 ng/ML (30-100) Hematocrit 28.9 % (35.0-46.0) Imaging Last Impressions Femur X-Ray 03/06/16 0000 Signed Impressions: Service Date/Time: Sunday, March 06, 2016 09:09 - CONCLUSION: Improved anatomic alignment following right femur ORIF. Joaquín Willard MD Knee X-Ray 03/05/16 0000 Signed Impressions: Service Date/Time: Saturday, March 05, 2016 19:50 - CONCLUSION: 1. No acute fracture or malalignment on this limited 2 view study. 2. Small soft tissue density of unclear significance. This could represent calcification or possible foreign body. Jarrod Garza MD Hip and Pelvis X-Ray 03/05/16 0000 Signed Impressions: Service Date/Time: Saturday, March 05, 2016 19:45 - CONCLUSION: Right intertrochanteric fracture. Jarrod Garza MD Chest X-Ray 03/05/16 0000 Signed Impressions: Service Date/Time: Saturday, March 05, 2016 19:45 - CONCLUSION: Rotated study hazy opacity projected over the right lung which likely is artifactual. Jarrod Garza MD PE at Discharge GENERAL: This is a 65-year-old female, well-nourished, well-developed patient, in no apparent distress. SKIN: No rashes, ecchymoses or lesions. Cool and dry. HEAD: Atraumatic. Normocephalic. No temporal or scalp tenderness. EYES: Pupils equal round and reactive. Extraocular motions intact. No scleral icterus. No injection or drainage. ENT: Nose without bleeding, purulent drainage or septal hematoma. Throat without erythema, tonsillar hypertrophy or exudate. Uvula midline. Airway patent. NECK: Trachea midline. No JVD or lymphadenopathy. Supple, nontender, no meningeal signs. CARDIOVASCULAR: Regular rate and rhythm without murmurs, gallops, or rubs. RESPIRATORY: Clear to auscultation. Breath sounds equal bilaterally. No wheezes , rales, or rhonchi. GASTROINTESTINAL: Abdomen soft, non-tender, nondistended. No hepato-splenomegaly , or palpable masses. No guarding. MUSCULOSKELETAL: Extremities without clubbing, cyanosis, or edema. No joint tenderness, effusion, or edema noted. No calf tenderness. Negative Homans sign bilaterally. NEUROLOGICAL: Awake and alert. Cranial nerves II through XII intact. Motor and sensory grossly within normal limits. Five out of 5 muscle strength in all muscle groups. Normal speech. Pt update on day of discharge Feeling much better. She has no complaints.No diziiness, she felst dizzy yesterday when she got up for the first time in the chair. No change in vision. No motor deficit. pain is controled by meds. No fever or chills. VS stable Plan to go to SNF Hospital Course 65-year-old female with past medical history hypertension, depression came to the emergency room for further evaluation after mechanical fall at home. Mechanical fall at home Right hip intertrochanteric fracture S/P Right hip reduction and intramedullary nail fixation by Dr Jill Flores 03/06/16. Pain per pain scale. Continue management per orthopedic doctor Hypertension. Noted hypotensive immediately after surgery. Received total of 5L normal saline postsurgical. Hold blood pressure medications. Monitor vital signs closely. BP improving, and stable. Also noted postoperative temps of 100.1, no leukocytosis no sign of infection. Temp better / noted Tachycardic give small dose 12.5 of atenolol. Continue to hold BP meds as BP is into a lower side. Depression. Stable at this time. Continue home medications. DVT prophylaxis SCD/teds, chemical prophylaxis per surgeon. 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 Patient improved. DC to SNF. To follow up as OP with PCP and consultants. Pt Condition on Discharge: Fair Discharge Disposition: Discharge to SNF Discharge Time: > 30 minutes Discharge Instructions DIET: Follow Instructions for: Heart Healthy Diet Activities you can perform: Weight Bearing as Luke Follow up Referrals: Orthopedics - 03/20/16 @ [facility] with Donny Flores MD PCP Follow-up - 3-5 Days New Medications: Hydrocodone-Acetaminophen ([place]) 7.5-325 mg Tab 1 TAB PO Q4H PRN PAIN #60 Ref 0 TAB Rivaroxaban (Xarelto) 10 Mg Tab 10 MG PO DAILY Blood Clot Prevention #14 Ref 0 TAB Walker/Adult/Folding (Walker/Adult/Folding) 1 Mis Mis 1 EA .ROUTE DIRECTED #1 Ref 0 EA Calcium Carbonate-Cholecalciferol (Oyster Shell Calcium/Vitamin D) 250-125 Mg- Unit Tab 250 MG PO TID vit D defic #90 TAB Ergocalciferol (Drisdol) 50,000 Unit Cap 25493 UNITS PO Q7D vit d deficiency #8 CAP Continued Medications: Fluoxetine (Prozac) 10 Mg Cap 50 MG PO DAILY #30 Ref 0 CAP Discontinued Medications: Atenolol (Atenolol) 50 Mg Tab 50 MG PO DAILY Blood Pressure Management #30 Ref 0 TAB Lisinopril (Lisinopril) 20 Mg Tab Unknown Dose PO DAILY #30 Ref 0 TAB Marlin Martin MD Mar 08, 2016 07:49
[2016-03-08] MEDS ORDERED: ATENOLOL 25 MG TAB PO ONE (08:00)
[2016-03-08] MEDS ORDERED: PILL SPLITTER OTHER PRN (08:00)
[2016-03-08 09:04] LABS: AUTOMATED NEUTROPHIL # 5.1 TH/MM3 (1.8-7.7); BASOPHIL % 0.6 % (0.0-2.0); EOSINOPHIL # 0.2 TH/MM3 (0-0.4); EOSINOPHIL % 2.5 % (0.0-4.0); HEMATOCRIT 27.4 % (35.0-46.0); HEMO FLAGS DIFF FINAL; LYMPH % 20.8 % (9.0-44.0); LYMPHOCYTE # 1.6 TH/MM3 (1.0-4.8); MEAN CELL VOLUME 89.8 FL (80.0-100.0); MEAN CORPUSCULAR HEMOGLOBIN 30.7 PG (27.0-34.0); MEAN CORPUSCULAR HGB CONC 34.2 % (32.0-36.0); MONO % 7.9 % (0.0-8.0); NEUT % 68.2 % (16.0-70.0); PLATELET COUNT 136 TH/MM3 (150-450); RED BLOOD COUNT 3.05 MIL/MM3 (4.00-5.30); RED CELL DISTRIBUTION WIDTH 12.7 % (11.6-17.2); WHITE BLOOD COUNT 7.6 TH/MM3 (4.0-11.0)
[2016-03-08] MEDS: SODIUM CHLORIDE 0.9% FLUSH 5 ML FLUSH IVF SCH ×2 (09:35→19:43)
[2016-03-08] MEDS: ENOXAPARIN SODIUM 30 MG/0.3 ML SYRINGE SQ SCH (09:35)
[2016-03-08] MEDS: CALCIUM/VITAMIN D 250 MG/125 U TAB PO SCH ×3 (09:36→17:37)
[2016-03-08] MEDS: ERGOCALCIFEROL (VIT D2) 50,000 UNIT CAP PO SCH (09:39)
[2016-03-08] MEDS ORDERED: BISACODYL 10 MG SUPP RECTAL ONE (12:30)
[2016-03-08] MEDS ORDERED: MAGNESIUM HYDROXIDE SUSP 30 ML CUP PO PRN (12:30)
--- NOTE | 2016-03-08 16:16 | HHI.PR ---
Subjective Remarks Seen earlier today. BP better controlled. Noted tachy will give a small dose of atenolol if BP permits. Continue to hold BP meds otherwise as PB is low. Was up in the chair. No cp, sob, n/v/d/c. Pain is controlled by meds. Objective Vitals Vital Signs Date Time Temp Pulse Resp B/P Pulse Ox O2 Delivery O2 Flow Rate FiO2 03/08/16 12:00 96.9 74 18 102/55 95 03/08/16 08:00 98.6 89 18 129/67 96 03/08/16 04:21 92 03/08/16 04:00 99.4 97 16 111/61 97 03/08/16 00:00 100.0 105 16 106/65 97 03/07/16 21:53 96 03/07/16 20:16 97/65 03/07/16 20:00 99.0 97 16 89/60 95 I/O 03/07/16 03/07/16 03/07/16 03/08/16 03/08/16 03/08/16 06:59 14:59 22:59 06:59 14:59 22:59 Intake Total 1049 ml 300 ml 480 ml 480 ml Output Total 600 ml 800 ml 450 ml Balance 449 ml 300 ml -320 ml 30 ml Intake Oral 300 ml 480 ml 480 ml IV Total 1049 ml Output Urine Total 600 ml 800 ml 450 ml # Voids 0 2 # Bowel Movements 0 Result Diagram: 03/08/16 0843 03/06/16 0447 Imaging Last Impressions Femur X-Ray 03/06/16 0000 Signed Impressions: Service Date/Time: Sunday, March 06, 2016 09:09 - CONCLUSION: Improved anatomic alignment following right femur ORIF. Joaquín Willard MD Knee X-Ray 03/05/16 0000 Signed Impressions: Service Date/Time: Saturday, March 05, 2016 19:50 - CONCLUSION: 1. No acute fracture or malalignment on this limited 2 view study. 2. Small soft tissue density of unclear significance. This could represent calcification or possible foreign body. Jarrod Garza MD Hip and Pelvis X-Ray 03/05/16 0000 Signed Impressions: Service Date/Time: Saturday, March 05, 2016 19:45 - CONCLUSION: Right intertrochanteric fracture. Jarrod Garza MD Chest X-Ray 03/05/16 0000 Signed Impressions: Service Date/Time: Saturday, March 05, 2016 19:45 - CONCLUSION: Rotated study hazy opacity projected over the right lung which likely is artifactual. Jarrod Garza MD Objective Remarks GENERAL: This is a 65-year-old female, well-nourished, well-developed patient, in no apparent distress. SKIN: No rashes, ecchymoses or lesions. Cool and dry. HEAD: Atraumatic. Normocephalic. No temporal or scalp tenderness. EYES: Pupils equal round and reactive. Extraocular motions intact. No scleral icterus. No injection or drainage. ENT: Nose without bleeding, purulent drainage or septal hematoma. Throat without erythema, tonsillar hypertrophy or exudate. Uvula midline. Airway patent. NECK: Trachea midline. No JVD or lymphadenopathy. Supple, nontender, no meningeal signs. CARDIOVASCULAR: Regular rate and rhythm without murmurs, gallops, or rubs. RESPIRATORY: Clear to auscultation. Breath sounds equal bilaterally. No wheezes , rales, or rhonchi. GASTROINTESTINAL: Abdomen soft, non-tender, nondistended. No hepato-splenomegaly , or palpable masses. No guarding. MUSCULOSKELETAL: Extremities without clubbing, cyanosis, or edema. No joint tenderness, effusion, or edema noted. No calf tenderness. Negative Homans sign bilaterally. NEUROLOGICAL: Awake and alert. Cranial nerves II through XII intact. Motor and sensory grossly within normal limits. Five out of 5 muscle strength in all muscle groups. Normal speech. A/P Assessment and Plan 65-year-old female with past medical history hypertension, depression came to the emergency room for further evaluation after mechanical fall at home. Mechanical fall at home Rights in intertrochanteric fracture. Status post relief by Dr. Bonilla . Pain per pain scale. Continue management per orthopedic doctor Hypertension. Noted hypotensive immediately after surgery. Received total of 5L normal saline postsurgical. Discussed with the nursing in pacu. Hold blood pressure medications at this time. Monitor vital signs closely. BP improving, and stable. Also noted postoperative temps of 100.1, no leukocytosis no sign of infection. Temp better Tachycardic give small dose 12,5 of atenolol. Continue to hold BP meds as BP is into a lower side. Depression. Stable at this time. Continue home medications. DVT prophylaxis SCD/teds, chemical prophylaxis per surgeon. Code Status Full code Discussed Condition With Patient, nurse Discharge Planning DC when improved and cleared by ortho. Plan to DC to SNF [id number] signed. Patient agrees to go to SNF. CM consulted for DC plan an and following for DC Marlin Martin MD Mar 08, 2016 16:16
[2016-03-09] VITALS: BP 110/58; PULSE 83; RESP 20; TEMP 98.8; O2SAT 98
[2016-03-09 04:00] VITALS: BP 112/61; PULSE 88; RESP 22; TEMP 98.9; O2SAT 96
[2016-03-09] MEDS: ACETAMINOPHEN/HYDROcodone 325 MG/7.5 MG TAB PO PRN ×2 (06:18→10:33)
--- NOTE | 2016-03-09 06:41 | PD.ORT.PN ---
Subjective Subjective Remarks Resting comfortably with no new complaints Objective Vitals Vital Signs Date Time Temp Pulse Resp B/P Pulse Ox O2 Delivery O2 Flow Rate FiO2 03/09/16 04:00 98.9 88 22 112/61 96 03/09/16 00:00 98.8 83 20 110/58 98 03/08/16 20:00 99.3 93 16 102/55 93 03/08/16 19:42 79 03/08/16 19:42 98 Nasal Cannula 2.00 03/08/16 17:57 21 03/08/16 16:00 98.6 83 18 110/65 94 03/08/16 12:00 96.9 74 18 102/55 95 03/08/16 08:00 98.6 89 18 129/67 96 I/O 03/08/16 03/08/16 03/08/16 03/09/16 03/09/16 03/09/16 07:00 15:00 23:00 07:00 15:00 23:00 Intake Total 480 ml 960 ml Output Total 450 ml Balance 30 ml 960 ml Intake Oral 480 ml 960 ml Output Urine Total 450 ml # Voids 2 3 # Bowel Movements 1 Result Diagram: 03/08/16 0843 03/06/16 0447 Objective Remarks RLE: dressings clean and dry.intact. nvi. Assessment & Plan Assessment and Plan 1) Right Intertroch Hip Fx s/p IMN - POD 4 -50%WB -daily dressing changes -CM for rehab placement -plan for DC to rehab -f/u with Sandra or SANDRA in 2 weeks KACI MORENO PA-C Mar 09, 2016 06:41
[2016-03-09 08:00] VITALS: BP 122/67; PULSE 80; RESP 18; TEMP 97.9; O2SAT 95
[2016-03-09] MEDS: SODIUM CHLORIDE 0.9% FLUSH 5 ML FLUSH IVF SCH (09:00)
[2016-03-09 09:33] VITALS: O2SAT 95
[2016-03-09] MEDS: CALCIUM/VITAMIN D 250 MG/125 U TAB PO SCH (10:32)
[2016-03-09] MEDS: ENOXAPARIN SODIUM 30 MG/0.3 ML SYRINGE SQ SCH (10:33)
--- NOTE | 2016-03-12 15:20 | PQ ---
Physician Query Response Document PATIENT: CHE LATIF : 1950 ADMIT DATE: 03/05/2016 10:19 PM DISCH DATE: 03/09/2016 11:31 AM RESPONDING PROVIDER #: [email or web address] QUERY TEXT: Clarification of Clinical Diagnostic Findings Please clarify documentation or clinical relevance for the clinical / diagnostic findings . Our revie w of the medical record indicates that in order for us to accurately code this account we need specif icity Based on your medical judgment, please clarify which, if any, of the following conditions are respons ible for these findings: ? Acute blood loss anemia ? Acute hemorrhagic anemia ? Chronic blood loss anemia ? Iron Deficiency anemia ? Acute on Chronic blood loss anemia ? Other Specify ? Unable to determine The patient's Clinical Indicators include: 65-year-old female who came to the emergency room for evaluation after mechanical fall at home. X-ra y reveals intertrochanteric fracture, orthopedic doctor was consulted and Dr. Bonilla, just the patien t to the OR for surgery on 03/06. On admit pt HGB=15.7 with HCT=44.7 on 03/05 after surgery the pt's H Query created by: Laury Maher on 03/09/2016 12:04 PM RESPONSE TEXT: Patient has acute on chronic anemia. Her HTC was falsely elevated on admission 2/2 patient was dehydr ated/volume contraction. Patient received also IVF, dilutional effect and also patient has postsurgic al anemia. Electronically signed by: Marlin Martin MD 03/12/2016 3:17 PM
== END 2016-03-09 11:31 | DRG 481 ==
LOC: NEPE 19:02 → NEDA 22:19 → NEDH 03-06 03:21 → HPAC 03-07 02:51 → N06A 03-07 13:18
PROVIDERS: ADMIT Hospitalist; ATTEND Hospitalist
PROC: 0QS606Z Reposition Right Upper Femur with Intramedullary Internal Fixation Device, Open Approach (ICD-10-PCS; principal; 2016-03-06 08:12)
DX: S72.141A Displaced intertrochanteric fracture of right femur, initial encounter for closed fracture (principal); D62 Acute posthemorrhagic anemia; I95.9 Hypotension, unspecified; I10 Essential (primary) hypertension; F32.9 Major depressive disorder, single episode, unspecified; F17.210 Nicotine dependence, cigarettes, uncomplicated; D72.829 Elevated white blood cell count, unspecified; E86.0 Dehydration; Q79.8 Other congenital malformations of musculoskeletal system; W01.0XXA Fall on same level from slipping, tripping and stumbling without subsequent striking against object, initial encounter; Y92.007 Garden or yard of unspecified non-institutional (private) residence as the place of occurrence of the external cause
CPT/HCPCS: 71010; 73502; 73552; 73560; 76000; 80048; 82306; 85014; 85018; 85025; 85610; 85730; 86850; 86900; 86901; 93005; 94664; 96374; C1713; J0131; J0690; J1580; J1650; J1885; J2250; J2270; J2370; J2405; J3010; J3370; J7050; J7120; J7613